=== PATIENT | female | born 1950 | race Caucasian/White ===

== ENCOUNTER 2020-07-05 08:54 | Outpatient (CLI) | payer MEDICARE, SELFPAY ==
--- NOTE | 2020-07-05 | US_ITS ---
WS: [id number] ULTRASOUND RENAL TECHNIQUE: Ultrasound examination of both kidneys. CLINICAL INFORMATION: ACUTE RENAL FAILURE COMPARISON: None. FINDINGS: RIGHT: Mild renal cortical atrophy with prominent peripelvic cysts with pelvocaliectasis Echogenicity: Normal. Hydronephrosis: None. Perinephric fluid: None. Right kidney measures: 9.9 cm x 4.7 cm x 4.3 cm. LEFT: Mild renal cortical atrophy with prominent peripelvic cysts with pelvocaliectasis. Echogenicity: Normal. Hydronephrosis: None. Perinephric fluid: None. Left kidney measures: 9.9 cm x 5.2 cm x 4.4 cm. Normal visualized aorta. Bladder not well distended US/US renal BI* [id number] IMPRESSION: 1. Bilateral peripelvic renal cysts with pelvocaliectasis similar to the prior CT 6 018. 2. No significant hydronephrosis. 3. Bladder is decompressed.
--- NOTE | 2020-07-05 | US_ITS ---
WS: [id number] ULTRASOUND ABDOMEN LIMITED CLINICAL INFORMATION: LFT ELEVATION COMPARISON: None. FINDINGS: Liver Size: Normal. Craniocaudal length: 13.1 cm. Echogenicity: Normal. Surface nodularity: None. Mass (size and location): None. Bile ducts Intrahepatic ducts: Normal. Common bile duct diameter: 6.8 cm. Gallbladder Removed Pancreas Normal as visualized. Right kidney: Dilated renal pelvis Hydronephrosis: None. Size: 9.9 cm x 5.1 cm x 4.4 cm. Abdominal aorta and IVC Visualized portions are normal. Ascites: None. US/US liver [id number] IMPRESSION: 1. Liver is normal. 2. Gallbladder has been removed. 3. Right renal peripelvic cysts and pelvocaliectasis. No significant hydroneph rosis.
== END 2020-07-05 08:55 | disposition home or self-care (01) ==
PROVIDERS: Family Provider Family Medicine; PCP Family Medicine; Visit Provider Family Medicine
DX: N17.9 Acute kidney failure, unspecified (principal); R79.89 Other specified abnormal findings of blood chemistry; N28.1 Cyst of kidney, acquired
CPT/HCPCS: 76705

== ENCOUNTER 2020-09-20 14:59 | Outpatient (CLI) | payer MEDICARE, SELFPAY ==
--- NOTE | 2020-09-20 15:08 | MM_ITS ---
WS: [id number] BILATERAL DIGITAL SCREENING MAMMOGRAPHY WITH CAD CLINICAL INFORMATION: SCREENING HISTORY: Screening mammogram. No current complaints. COMPARISON: TECHNIQUE: Bilateral CC and MLO views. FINDINGS: Scattered fibroglandular densities bilaterally. No suspicious focal mass, asymmetry, calcifications, or architectural distortion. No evidence of malignancy. Punctate and lucent centered calcifications. Stable ovoid nodules right breast. MM/[place] [id number] IMPRESSION: BI-RADS: 2-Benign FOLLOW UP: 1 Year Follow-up Recommend return to annual screening mammography.
== END 2020-09-20 15:00 | disposition home or self-care (01) ==
LOC: RADSHAW 15:06
PROVIDERS: PCP Family Medicine; Visit Provider Nurse Practitioner
DX: Z12.31 Encounter for screening mammogram for malignant neoplasm of breast (principal)
CPT/HCPCS: 77067

== ENCOUNTER 2021-07-31 15:11 | Outpatient (CLI) | payer MEDICARE, SELFPAY ==
--- NOTE | 2021-07-31 15:23 | XR_ITS ---
WS: [id number] SCREENING DEXA SCAN [employer] CLINICAL INFORMATION: POSTMENOPAUSAL COMPARISON: FINDINGS: The L1-L4 bone mineral density measures 0.981 g/cm2. This corresponds to a T score score of -1.7 and Z score of -0.3. Left femoral neck bone mineral density measures 0.798 g/cm2. This corresponds to a T score of -1.7 an d Z score of -0.5. Right femoral neck bone mineral density measures 0.801 g/cm2. This corresponds to a T score -1.6of an d Z score of -0.5. Mean femoral neck bone mineral density measures 0.800 g/cm2. This corresponds to a T score of -1.7 an d Z score of -0.5. XR/XR DEXA axial skeleton* [id number] IMPRESSION: Osteopenia Patient's FRAX calculated 10 year probability for major osteoporotic fracture i s 13.5 % and osteoporotic hip fracture is 3.0%.
== END 2021-07-31 15:12 | disposition home or self-care (01) ==
PROVIDERS: PCP Family Medicine; Visit Provider Family Medicine
DX: Z78.0 Asymptomatic menopausal state (principal); M85.80 Other specified disorders of bone density and structure, unspecified site
CPT/HCPCS: 77080

== ENCOUNTER 2022-02-14 10:39 | Outpatient (CLI) | payer MEDICARE, SELFPAY ==
--- NOTE | 2022-02-14 10:50 | MM_ITS ---
WS: [id number] VIEWS: MLO and CC views both breasts. 3D digital tomosynthesis is also included in this exam. Comparison made with prior exam of 07/13/2015, 08/08/2016, 08/11/2017, 01/01/2019, 09/20/2020.. Findings: There was no sign of mass, architectural distortion or suspicious calcification in either breast. Sta ble appearing nodular densities in both breasts.Scattered fibroglandular densities MM/[place] [id number] Impression: BI-RADS: 2-Benign FOLLOW-UP: 1 Year Follow-up This mammogram was also analyzed by the Computer Aided Detection System [employer] Faculty Member.
== END 2022-02-14 10:40 | disposition home or self-care (01) ==
LOC: RAD 10:47
PROVIDERS: PCP Family Medicine; Visit Provider Family Medicine
DX: Z12.31 Encounter for screening mammogram for malignant neoplasm of breast (principal)
CPT/HCPCS: 77063; 77067

== ENCOUNTER 2022-12-03 09:51 | Emergency (ER) | payer MEDICARE, SELFPAY ==
[2022-12-03 10:01] VITALS: BP 118/76; PULSE 54; RESP 16; TEMP 35.9; O2SAT 100; BMI 24.4
[2022-12-03 10:20] VITALS: BP 124/67; PULSE 51; RESP 18; O2SAT 100
[2022-12-03] MEDS: ondansetron 2 mg/ML SDV 2 mL 4 MG IVP (10:21)
[2022-12-03] MEDS: sodium chloride 0.9% 1,000 ML 999 ML IV (10:22)
[2022-12-03 10:28] LABS: Basophils # 0.1 10^3/uL (0.0-0.1); Basophils % 1.2 %; Eosinophils # 0.1 10^3/uL (0.0-0.8); Eosinophils % 2.4 %; Hematocrit 38.6 % (37.0-47.0); Hemoglobin 12.5 g/dL (11.5-15.3); Lymphocytes # 1.4 10^3/uL (0.8-4.8); Mean Corpuscular HGB Conc 32.4 g/dL (30.0-36.0); Mean Corpuscular Volume 86.5 fl (81-99); Mean Platelet Volume 10.3 fL (7.4-10.4); Monocytes # 0.4 10^3/uL (0.2-0.9); Monocytes % 6.9 %; Neutrophils # 3.74 10^3/uL (1.8-7.7); Nucleated Red Blood Cells % 0 %; Platelet Count 192 10^3/cmm (130-400); Red Blood Count 4.46 10^6/uL (4.1-5.3); Red Cell Distribution Width 13.1 % (12.1-15.1); White Blood Count 5.8 10^3/uL (4.0-10.0)
--- NOTE | 2022-12-03 10:43 | W.ED.ABDPA2 ---
HPI - Abdominal Pain General: Chief Complaint: Abdominal Pain Stated Complaint: Abd pains Time Seen by Provider: 12/03/22 10:03 Source: patient Mode of arrival: ambulatory History of Present Illness: 71-year-old female presents emergency room complaining of abdominal pain and dizziness. She has recent completed course of antibiotics for urinary tract infection she denies any dysuria urgency or frequency. No hematuria. No vomiting or diarrhea. She does feel like she is having a lot of heartburn she previously had a Ramiro fundoplication. She denies any hematemesis or coffee-ground emesis. MD elicited complaint: abdominal pain Onset (ago): hour(s) Pain Consistency: constant Location: Epigastric Severity: moderate Quality: cramping Radiation: none Exacerbating factors: nothing Relieving factors: nothing Associated Symptoms: Reports bloating, GI cramping and poor appetite; Denies anorexia, belching, change in bowel habits, change in stool character, chills, coffee ground emesis, constipation, diarrhea, dyspepsia, dysuria, excessive flatus, fever(s), heartburn, hematochezia, hematuria, hematemesis, fecal incontinence, loose stools, melena, nausea, syncope and vomiting Review of Systems Const: Reports: fatigue and malaise; Denies: fever(s) or chills ENMT: Denies: throat pain, ear or mastoid pain, nasal discharge or nasal congestion Card: Denies: chest pain, palpitations, irregular heart rhythm or syncope Resp: Denies: dyspnea, productive cough or non-productive cough GI: Reports: abdominal pain, bloating and GI cramping; Denies: nausea, vomiting, hematemesis, coffee ground emesis, heartburn, diarrhea, constipation, belching, excessive flatus, fecal incontinence, change in bowel habits, change in stool character, hematochezia or melena : Denies: dysuria or hematuria Skin/Breast: Denies: rash or pruritus PFSH ED PFSH: Medical History GERD (gastroesophageal reflux disease) Surgical History History of Ramiro fundoplication Physical Exam Const: GENERAL APPEARANCE: cooperative and comfortable ORIENTATION/CONSCIOUSNESS: Yes awake, Yes oriented to person, Yes oriented to place and Yes oriented to time HENMT: COMMON NORMALS: normocephalic, atraumatic and hearing grossly normal bilaterally HEAD & SCALP: normocephalic and atraumatic Resp: COMMON NORMALS: normal respiratory effort, No retractions, No use of accessory muscles and clear to auscultation bilaterally AUSCULTATION: clear to auscultation bilaterally Cardio: COMMON NORMALS: regular rate, regular rhythm and No murmurs present (Cardio) RATE: regular rate RHYTHM: regular rhythm GI: COMMON NORMALS: Soft to palpation and No hepatosplenomegaly present AUSCULTATION: Yes normoactive bowel sounds PALPATION: Yes Soft to palpation, No Tenderness to palpation present (GI), No Guarding due to palpation present (GI) and Yes No hepatosplenomegaly present Extremity: COMMON NORMALS: normal to inspection, capillary refill normal, no clubbing, cyanosis or edema, no calf tenderness and no pedal edema Neuro: SENSORIUM/ORIENTATION: Yes oriented to person, Yes oriented to place and Yes oriented to time Skin: COMMON NORMALS: no rashes or lesions noted GENERAL SKIN EXAM: no rashes or lesions noted Course Vital Signs: Vital signs: Vital Signs Temperature 96.7 F L 12/03/22 10:01 Pulse Rate 54 L 12/03/22 11:20 Respiratory Rate 18 12/03/22 10:20 Blood Pressure 117/66 12/03/22 11:20 Pulse Oximetry 96 12/03/22 12:15 Oxygen Delivery Me thod 12/03/22 12:15 MDM - Abdominal Pain Medical Decision Making Patient significant improvement after GI cocktail. Discharge patient home started on pantoprazole 40 mg twice daily for 14 days and then daily. Follow-up with primary care doc within the week. Return if has further problems. Medical Records I reviewed the patient's medical records. Lab Data I reviewed the patient's lab results. 12/03/22 10:20 12/03/22 10:20 Labs/Radiology: Laboratory Results WBC 5.8 10^3/uL (4.0-10.0) 12/03/22 10:20 RBC 4.46 10^6/uL (4.1-5.3) 12/03/22 10:20 Hgb 12.5 g/dL (11.5-15.3) 12/03/22 10:20 Hct 38.6 % (37.0-47.0) 12/03/22 10:20 MCV 86.5 fl (81-99) 12/03/22 10:20 MCH 28.0 pg (28.0-34.0) 12/03/22 10:20 MCHC 32.4 g/dL (30.0-36.0) 12/03/22 10:20 RDW 13.1 % (12.1-15.1) 12/03/22 10:20 Plt Count 192 10^3/cmm (130-400) 12/03/22 10:20 MPV 10.3 fL (7.4-10.4) 12/03/22 10:20 Neut % (Auto) 65.0 % 12/03/22 10:20 Lymph % (Auto) 24.0 % 12/03/22 10:20 [place] % (Auto) 6.9 % 12/03/22 10:20 Eos % (Auto) 2.4 % 12/03/22 10:20 Baso % (Auto) 1.2 % 12/03/22 10:20 Neut # (Auto) 3.74 10^3/uL (1.8-7.7) 12/03/22 10:20 Lymph # (Auto) 1.4 10^3/uL (0.8-4.8) 12/03/22 10:20 [place] # (Auto) 0.4 10^3/uL (0.2-0.9) 12/03/22 10:20 Eos # (Auto) 0.1 10^3/uL (0.0-0.8) 12/03/22 10:20 Baso # (Auto) 0.1 10^3/uL (0.0-0.1) 12/03/22 10:20 Nucleated RBC % (auto) 0 % 12/03/22 10:20 Nucleated RBCs # 0.0 /100WBC 12/03/22 10:20 Sodium 139 mmol/L (136-145) 12/03/22 10:20 Potassium 3.0 mmol/L (3.5-5.1) L 12/03/22 10:20 Chloride 99 mmol/L (98-107) 12/03/22 10:20 Carbon Dioxide 29 mmol/L (22-29) 12/03/22 10:20 Anion Gap 14.0 (5-19) 12/03/22 10:20 BUN 26 mg/dL (8-23) H 12/03/22 10:20 Creatinine 1.6 mg/dL (0.5-0.9) H 12/03/22 10:20 GFR Calculation 32.0 mL/min (90-130) L 12/03/22 10:20 Glucose 93 mg/dL (65-115) 12/03/22 10:20 Calculated Osmolality 292 mOsm/kg (285-295) 12/03/22 10:20 Calcium 10.7 mg/dL (8.5-10.5) H 12/03/22 10:20 Total Bilirubin 0.3 mg/dL (0.15-1.2) 12/03/22 10:20 AST 20 U/L (0-32) 12/03/22 10:20 ALT 13 U/L (0-33) 12/03/22 10:20 Alkaline Phosphatase 56 U/L (35-105) 12/03/22 10:20 Creatine Kinase 85 U/L (26-192) 12/03/22 10:20 Total Protein 6.8 g/dL (6.6-8.7) 12/03/22 10:20 Albumin 3.7 g/dL (3.5-5.2) 12/03/22 10:20 Globulin 3.1 g/dL (1.3-4.6) 12/03/22 10:20 Urine Color Yellow (Yellow) 12/03/22 12:57 Urine Appearance Clear (CLEAR) 12/03/22 12:57 Urine pH 7 (5-7) 12/03/22 12:57 Ur Specific [place] 1.010 (1.005-1.030) 12/03/22 12:57 Urine Protein Neg (Negative) 12/03/22 12:57 Urine Glucose (UA) Norm (Normal) 12/03/22 12:57 Urine Ketones Negative (Negative) 12/03/22 12:57 Urine Blood Neg (Negative) 12/03/22 12:57 Urine Nitrate Negative (Negative) 12/03/22 12:57 Urine Bilirubin Neg (Negative) 12/03/22 12:57 Urine Urobilinogen Norm mg/dL (Negative) 03/28/23 12:57 Ur Leukocyte Esterase Negative (Negative) 12/03/22 12:57 Discharge Plan Discharge Patient Disposition: Home Clinical Impression: GERD (gastroesophageal reflux disease) Condition: Stable Prescriptions: New Protonix 40 mg tablet,delayed release (DR/EC) 40 mg PO BID 14 Days Qty: 28 0RF potassium chloride 20 mEq tablet extended release 20 meq PO DAILY Qty: 5 0RF No Action carisoprodol 350 mg tablet 350 mg PO Q6H PRN (Reason: Muscle Spasm) metoprolol succinate 50 mg tablet extended release 24 hr 50 mg PO QAM ondansetron HCl 4 mg tablet 4 mg PO Q6H PRN (Reason: Nausea And Vomiting) ciprofloxacin HCl 500 mg tablet 500 mg PO Q12H Rx Instructions: for 7 days (rx filled 11/25/22) tramadol 50 mg tablet 100 mg PO BID levothyroxine 75 mcg tablet 75 mcg PO BEDTIME amlodipine 10 mg tablet 10 mg PO QAM lisinopril-hydrochlorothiazide 10-12.5 mg tablet 1 tab PO QAM duloxetine 20 mg capsule,delayed release(DR/EC) 20 mg PO QAM Discharge Orders: Discharge ED (Routine); Ordered 12/03/22 Ordered By: Santosh Barragan Referrals: Kumar Nj MD [Primary Care Provider] - Discharge Diet: As Directed Discharge Activity: Resume usual activity Patient Instructions: Opioid Safety, Pain Management Activity Restrictions/Additional Instructions: You are seen today for dizziness and abdominal discomfort. Abdominal discomfort improved with medications for your stomach. Recommend that you start pantoprazole 40 mg twice daily for the next 2 weeks then once daily after that. Your potassium was slightly low but not significant will discharge home with oral potassium supplement for the next 3 days. Your creatinine is also very slightly elevated the creatinine and potassium should be checked by your primary care doctor within the next week. Coding Level of Care Code ED [employer] for Jodie Apodaca
[2022-12-03 10:46] LABS: Alanine Aminotransferase 13 U/L (0-33); Albumin Level 3.7 g/dL (3.5-5.2); Alkaline Phosphatase 56 U/L (35-105); Aspartate Amino Transferase 20 U/L (0-32); Blood Urea Nitrogen 26 mg/dL (8-23); Calcium 10.7 mg/dL (8.5-10.5); Carbon Dioxide 29 mmol/L (22-29); Chloride 99 mmol/L (98-107); Creatine Phosphokinase 85 U/L (26-192); Globulin 3.1 g/dL (1.3-4.6); Glucose 93 mg/dL (65-115); Osmolality Calculated 292 mOsm/kg (285-295); Sodium 139 mmol/L (136-145); Total Bilirubin 0.3 mg/dL (0.15-1.2); Total Protein 6.8 g/dL (6.6-8.7)
[2022-12-03] MEDS: lidocaine 2% viscous 15 ML, aluminum-mag hydrox-simethicon 30 ML, sucralfate oral liq 1 GM PO (11:18)
[2022-12-03 11:20] VITALS: BP 117/66; PULSE 54; O2SAT 95
[2022-12-03 12:15] VITALS: O2SAT 96
[2022-12-03 13:11] LABS: Add Urine Microscopic? NO; Charge for UA Resulting for Rev
[2022-12-03 13:31] LABS: Bilirubin Urine Neg (Negative); Blood Urine Neg (Negative); Glucose Urine UA Norm (Normal); Ketones Urine Negative (Negative); Leukocyte Esterase Urine Negative (Negative); Nitrate Urine Negative (Negative); Protein Urine Neg (Negative); Urine Appearance Clear (CLEAR); Urine Color Yellow (Yellow); Urobilinogen Urine Norm (Negative); pH Urine 7 (5-7)
== END 2022-12-03 13:23 | disposition home or self-care (01) ==
PROVIDERS: Emergency Provider Family Medicine; PCP Family Medicine
DX: K21.9 Gastro-esophageal reflux disease without esophagitis (principal)
CPT/HCPCS: 36415; 80053; 81003; 82550; 85025; 96361; 96374; 99284; J2405; J7030

== ENCOUNTER 2023-02-11 08:57 | Outpatient (CLI) | payer MEDICARE, SELFPAY ==
--- NOTE | 2023-02-11 09:20 | US_ITS ---
WS: [id number] ULTRASOUND ABDOMEN LIMITED CLINICAL INFORMATION: LIVER TRANSAMINASE LEVEL ELEVATED COMPARISON: Ultrasound 2020 FINDINGS: Liver Size: Normal. Craniocaudal length: 13.7 cm. Echogenicity: Coarse Surface nodularity: None. Mass (size and location): None. Bile ducts Intrahepatic ducts: Normal. Common bile duct diameter: 0.6 cm. Gallbladder Cholecystectomy Pancreas Normal as visualized. Right kidney: Normal. Hydronephrosis: None. Size: 8.2 cm x 4.4 cm x 5.0 cm. Abdominal aorta and IVC Visualized portions are normal. Ascites: None. US/US liver [id number] IMPRESSION: 1. Prior cholecystectomy. 2. Coarse hepatic echogenicity likely due to fatty infiltration. Recommend cor relation with liver function tests. 3. No hydronephrosis in RIGHT kidney.
== END 2023-02-11 08:58 | disposition home or self-care (01) ==
PROVIDERS: PCP Family Medicine; Visit Provider Family Medicine
DX: R74.01 Elevation of levels of liver transaminase levels (principal); Z90.49 Acquired absence of other specified parts of digestive tract
CPT/HCPCS: 76705

== ENCOUNTER 2023-02-25 09:23 | Outpatient (CLI) | payer MEDICARE, SELFPAY ==
--- NOTE | 2023-02-25 09:29 | MM_ITS ---
WS: [id number] BILATERAL 3D TOMOSYNTHESIS DIGITAL SCREENING MAMMOGRAPHY WITH CAD CLINICAL INFORMATION: SCREEN HISTORY: Screening mammogram. No current complaints. COMPARISON: February 14, 2022 TECHNIQUE: Bilateral CC and MLO views. FINDINGS: Scattered fibroglandular densities bilaterally. No suspicious focal mass, asymmetry, calcifications, or architectural distortion. No evidence of malignancy. Punctate and lucent centered calcifications. Vascular calcification. MM/[place] [id number] IMPRESSION: BI-RADS: 2-Benign FOLLOW UP: 1 Year Follow-up Recommend return to annual screening mammography.
== END 2023-02-25 09:24 | disposition home or self-care (01) ==
PROVIDERS: PCP Family Medicine; Visit Provider Family Medicine
DX: Z12.31 Encounter for screening mammogram for malignant neoplasm of breast (principal)
CPT/HCPCS: 77063; 77067

== ENCOUNTER 2024-05-05 10:56 | Outpatient (CLI) | payer MEDICARE, SELFPAY ==
--- NOTE | 2024-05-05 11:06 | MM_ITS ---
WS: [id number] BILATERAL SCREENING DIGITAL TOMOSYNTHESIS MAMMOGRAM WITH CAD HISTORY: SCREENING COMPARISON: 02/25/2023, 02/14/2022 and 09/20/2020 Bilateral CC and MLO views with tomosynthesis and synthetic mammography submitted. Computer aided det ection analyzed. Breast composition: There are scattered areas of fibroglandular density. No suspicious masses, microc alcifications or architectural distortion. Numerous benign calcifications within each breast. There a re additional nodules and asymmetries within each breast, greatest throughout the RIGHT breast. These asymmetries are stable. MM/[place] [id number] IMPRESSION: BI-RADS: 2-Benign FOLLOW UP: 1 Year Follow-up
== END 2024-05-05 10:57 | disposition home or self-care (01) ==
LOC: RAD 10:57
PROVIDERS: PCP Family Medicine; Visit Provider Family Medicine
DX: Z12.31 Encounter for screening mammogram for malignant neoplasm of breast (principal); R92.323 Mammographic fibroglandular density, bilateral breasts; N64.89 Other specified disorders of breast; R92.1 Mammographic calcification found on diagnostic imaging of breast
CPT/HCPCS: 77063; 77067

== ENCOUNTER 2024-06-01 10:25 | Emergency (ER) | payer MEDICARE, SELFPAY ==
[2024-06-01 10:28] VITALS: BP 123/73; PULSE 59; RESP 17; TEMP 36.9; O2SAT 98; BMI 26.2
--- NOTE | 2024-06-01 10:57 | XRR_ITS ---
PROCEDURE INFORMATION: Exam: XR Chest Exam date and time: 06/01/2024 11:06 AM Age: 73 years old Clinical indication: Injury or trauma; Fall; Blunt trauma (contusions or hematomas) TECHNIQUE: Imaging protocol: Radiologic exam of the chest. Views: 1 view. COMPARISON: CT chest abdpel w/*[id number] 03/02/2018 1:25 PM FINDINGS: Lungs: Unremarkable. No consolidation. Pleural spaces: Unremarkable. No pleural effusion. No pneumothorax. Heart/Mediastinum: Heart size is normal. There is calcified plaque involving the aorta. Bones/joints: Unremarkable. XR/XR chest 1V portable [id number] IMPRESSION: 1. No acute cardiopulmonary findings.
--- NOTE | 2024-06-01 10:57 | XRR_ITS ---
PROCEDURE INFORMATION: Exam: XR Thoracic Spine Exam date and time: 06/01/2024 11:06 AM Age: 73 years old Clinical indication: Injury or trauma; Fall; Blunt trauma (contusions or hematomas) TECHNIQUE: Imaging protocol: Radiologic exam of the thoracic spine. Views: 3 views. COMPARISON: CR XR chest 1V portable [id number] 06/01/2024 11:06 AM FINDINGS: Bones/joints: There are 12 rib-bearing thoracic vertebral bodies. There is a slight S shaped scoliotic curvature. No subluxations are identified. No definite fractures are noted. There is mild disc space narrowing with small osteophytes at multiple midthoracic levels. The pedicles appear to be intact. Soft tissues: Unremarkable. XR/XR thoracic spine 3V* [id number] IMPRESSION: 1. Slight scoliotic curvature. 2. Spondylosis.
--- NOTE | 2024-06-01 10:57 | XRR_ITS ---
PROCEDURE INFORMATION: Exam: XR Lumbosacral Spine Exam date and time: 06/01/2024 11:06 AM Age: 73 years old Clinical indication: Injury or trauma; Fall; Blunt trauma (contusions or hematomas) TECHNIQUE: Imaging protocol: Radiologic exam of the lumbosacral spine. Views: 2 or 3 views. COMPARISON: CT chest abdpel w/*[id number] 03/02/2018 1:25 PM FINDINGS: Bones/joints: There are 5 [id number] lumbar vertebral bodies. There is a slight scoliotic curvature convex right. There is grade 1 anterolisthesis of L4 in relation to L5 secondary to degenerative facets. No compression fractures are noted. There is disc space narrowing most pronounced at L5-S1. There are degenerative changes involving the lower lumbar facets. SI joints are normal. Soft tissues: See Intraperitoneal space finding. Intraperitoneal space: There are numerous surgical clips within the abdomen and pelvis. No acute soft tissue abnormalities are otherwise appreciated. XR/XR lumbar spine 2-3V* [id number] IMPRESSION: 1. Slight scoliotic curvature convex right. 2. Spondylosis with spondylolisthesis.
--- NOTE | 2024-06-01 13:59 | ED_ITS ---
HPI - Fall General: Chief Complaint: Back Pain/Injury Stated Complaint: SOB Fell hurt back/chest Time Seen by Provider: 06/01/24 13:53 Source: patient and family Mode of arrival: ambulatory Limitations: no limitations History of Present Illness: Patient is a 73-year-old female presents to ED today along with family for evaluation following a fall. Patient states she was walking down a wooden ramp earlier today at her house when she accidentally slipped because it was wet and muddy. She states she landed directly onto her tailbone . Upon arrival to the emergency department she had complained of back pain chest pain and had x-rays of her chest, thoracic, lumbar spine performed. Her main concern at time of my examination is tailbone pain. She has been ambulatory without difficulty or assistance since the fall. She states her pain actually feels better with movement/ambulation and worse when she is sitting on her buttocks/tailbone. MD complaint: fall Onset (ago): hour(s) Fall from: standing Fall witnessed: yes, by family Place fall occurred: home Loss of consciousness: None Prolonged down time: no Symptoms prior to fall: none Context: tripped/slipped Location of injury: back and buttocks Associated symptoms-after fall: Reports no associated symptoms; Denies abdominal pain, chest pain, difficulty walking, headache(s), hematuria, lightheadedness or neck pain Related Data Home Medications Medication Instructions Recorded Confirmed amlodipine 10 mg tablet 10 mg PO QAM 12/03/22 12/03/22 carisoprodol 350 mg tablet 350 mg PO Q6H PRN Muscle Spasm 12/03/22 12/03/22 ciprofloxacin HCl 500 mg tablet 500 mg PO Q12H 12/03/22 12/03/22 duloxetine 20 mg capsule,delayed 20 mg PO QAM 12/03/22 12/03/22 release levothyroxine 75 mcg tablet 75 mcg PO BEDTIME 12/03/22 12/03/22 lisinopril 10 1 tab PO QAM 12/03/22 12/03/22 mg-hydrochlorothiazide 12.5 mg tablet metoprolol succinate 50 mg 50 mg PO QA 12/03/22 12/03/22 tablet,extended release 24 hr ondansetron HCl 4 mg tablet 4 mg PO Q6H PRN Nausea And Vomiting 12/03/22 12/03/22 tramadol 50 mg tablet 100 mg PO BID 12/03/22 12/03/22 Previous Rx's Medication Instructions Recorded potassium chloride 20 mEq 20 meq PO DAILY #5 tabs 12/03/22 tablet,extended release hydrocodone 5 mg-acetaminophen 325 1 tab PO Q6H PRN pain #14 tabs 06/01/24 mg tablet Allergies Allergy/AdvReac Type Severity Reaction Status Date / Time No Known Allergies Allergy Verified 12/03/22 10:24 Review of Systems Eyes: Denies: change in vision, blurry vision, photophobia, eye discharge, floaters or seeing flashes ENMT: Denies: throat pain, odynophagia, ear or mastoid pain, ear discharge, nasal discharge, epistaxis or sinus pain Card: Denies: chest pain, palpitations, lightheadedness, syncope or pre- syncope Resp: Denies: dyspnea or pain on inspiration GI: Denies: abdominal pain : Denies: flank pain or hematuria Musc: Reports: back pain; Denies: neck pain, extremity pain, extremity swelling, joint pain, joint swelling, joint redness or joint warmth Neuro: Denies: headache(s), numbness in extremities, weakness in extremities, sensory changes, difficulty walking or dizziness PFSH ED PFSH: Medical History GERD (gastroesophageal reflux disease) Surgical History History of Ramiro fundoplication Physical Exam Const: COMMON NORMALS: no acute distress, average body habitus, patient oriented x3, no limitations, healthy appearing, alert and well nourished GENERAL APPEARANCE: cooperative ORIENTATION/CONSCIOUSNESS: Yes awake, Yes oriented to person, Yes oriented to place and Yes oriented to time HENMT: COMMON NORMALS: normocephalic, atraumatic and TM's normal bilaterally HEAD & SCALP: normal to inspection, normocephalic and atraumatic; no Hopper's sign, no hematoma and no raccoon eyes FACE & SINUS: normal facial exam TYMPANIC MEMBRANE: TM's normal bilaterally MOUTH: other (no intraoral injuries noted) Eye: COMMON NORMALS: Equal, round and reactive pupils present and EOMs intact bilaterally GENERAL EYE: appearance normal, both eyes and all related structures and normal light reflex PUPIL: Yes Equal, round and reactive pupils present DIRECT OPHTHALMOSCOPY: Yes normal light reflex Neck/C-Spine: COMMON NORMALS: full ROM GENERAL: Yes normal visual inspection CERVICAL SPINE: Yes cervical ROM normal, No pain with cervical ROM, No Cervical spine tenderness, No step off deformity and No Paracervical muscle tenderness Chest: COMMONS NORMALS: normal inspection of the chest and normal palpation of entire chest wall Resp: COMMON NORMALS: normal respiratory effort and clear to auscultation bilaterally AUSCULTATION: clear to auscultation bilaterally Cardio: COMMON NORMALS: regular rate and regular rhythm RATE: regular rate RHYTHM: regular rhythm GI: COMMON NORMALS: Normal to inspection, nondistended, normoactive bowel sounds present, Soft to palpation, non-tender, No hepatosplenomegaly present and no masses INSPECTION: Yes normal to inspection and No abdominal wall ecchymosis AUSCULTATION: Yes normoactive bowel sounds PALPATION: Yes Soft to palpation and Yes No hepatosplenomegaly present Back/Pelvis: COMMON NORMALS: thoracic and lumbar spine normal to inspection and thoraco-lumbar ROM normal THORACIC SPINE/UPPER BACK: Yes thoracic spinal tenderness LUMBAR SPINE/LOWER BACK: Yes lumbar spinal tenderness PELVIS: Yes buttocks normal and No sciatic notch tenderness SACROILIAC JOINTS: Yes SI joints normal SACRUM: tenderness COCCYX: Coccyx tenderness present Extremity: COMMON NORMALS: normal to inspection and full ROM GENERAL: Yes normal exam except as noted Neuro: AYLA COMA SCALE: document GCS findings Crawford coma scale eye opening: Spontaneous Ayla coma scale verbal response: Orientated Crawford coma scale motor response: Obey commands Ayla coma scale total score: 15 COMMON NORMALS: patient oriented x3, CN's II-XII intact bilaterally, moves all extremities, no focal motor deficits, no sensory deficits noted and gait normal SENSORIUM/ORIENTATION: Yes alert, Yes oriented to person, Yes oriented to place and Yes oriented to time SPEECH: speech normal GAIT: Yes Normal gait present Skin: COMMON NORMALS: no rashes or lesions noted GENERAL SKIN EXAM: no rashes or lesions noted TRAUMA: no lacerations or abrasions Course Vital Signs: Vital signs: Vital Signs Temperature 98.5 F 06/01/24 10:28 Pulse Rate 59 L 06/01/24 10:28 Respiratory Rate 17 06/01/24 10:28 Blood Pressure 123/73 06/01/24 10:28 Pulse Oximetry 98 09/24/24 10:28 Oxygen Delivery Me thod Room Air 06/01/24 10:28 MDM - Fall Medical Decision Making XRs of her chest, thoracic spine, lumbar spine ordered from the waiting room and are unremarkable. Personal interpretation does show some deformity to her coccyx on her XR lumbar. Spoke to Dr. Brooks who agrees. Stated it was difficult to tell whether this was acute or chronic. Old CT imaging reviewed which does show this may be chronic. His recommendation was for CT bony pelvis imaging to evaluate for acute sacral/coccygeal injury. Patient states she does not want to stay for this and would like to go home. She is requesting pain medications be sent to her pharmacy. She states she will follow-up with her PCP Dr. Nj for continued pain and can get this ordered as an outpatient if necessary. Medical Records I reviewed the patient's medical records. Lab Data Radiology Impressions Chest X-Ray 06/01/24 10:57 IMPRESSION: 1. No acute cardiopulmonary findings. Lumbar Spine X-Ray 06/01/24 10:57 IMPRESSION: 1. Slight scoliotic curvature convex right. 2. Spondylosis with spondylolisthesis. Thoracic Spine X-Ray 06/01/24 10:57 IMPRESSION: 1. Slight scoliotic curvature. 2. Spondylosis. All radiology interpretation(s) finalized by discharge Discharge Plan Discharge Patient Disposition: Home Clinical Impression: Fall from slipping on mud, Acute coccygeal pain Condition: Stable Prescriptions: New hydrocodone-acetaminophen 5-325 mg tablet 1 tab PO Q6H PRN (Reason: pain) Qty: 14 0RF Held tramadol 50 mg tablet 100 mg PO BID Hold Instructions: do not take along with the hydrocodone you were prescribed No Action carisoprodol 350 mg tablet 350 mg PO Q6H PRN (Reason: Muscle Spasm) metoprolol succinate 50 mg tablet extended release 24 hr 50 mg PO QAM ondansetron HCl 4 mg tablet 4 mg PO Q6H PRN (Reason: Nausea And Vomiting) ciprofloxacin HCl 500 mg tablet 500 mg PO Q12H Rx Instructions: for 7 days (rx filled 11/25/22) levothyroxine 75 mcg tablet 75 mcg PO BEDTIME amlodipine 10 mg tablet 10 mg PO QAM lisinopril-hydrochlorothiazide 10-12.5 mg tablet 1 tab PO QAM duloxetine 20 mg capsule,delayed release(DR/EC) 20 mg PO QAM potassium chloride 20 mEq tablet extended release 20 meq PO DAILY Qty: 5 0RF Discharge Orders: Discharge ED (Routine); Ordered 06/01/24 Ordered By: Sophie Dao Referrals: Kumar Nj MD [Primary Care Provider] - Patient Instructions: Coccyx Injury, Coccyx Injury (ED), Opioid Safety, Pain Management Activity Restrictions/Additional Instructions: As we discussed, you need to sit on a doughnut cushion to help with your coccyx discomfort. As we discussed, you have declined additional imaging for diagnosis of a sacral or coccyx fracture. You have indicated you have follow-up with your primary care provider for this. Recommend he return to the emergency department for worsening or uncontrollable pain, trouble walking, dizziness, lightheadedness, passing out, significant bruising to your abdomen or back, or any other concerns you may have. Coding Level of Care Code ED [employer] for Jodie Apodaca
[2024-06-01 14:17] VITALS: BP 133/82; PULSE 63; RESP 18; O2SAT 100
[2024-06-01 14:21] VITALS: RESP 18
[2024-06-01] MEDS: ondansetron 2 mg/ML SDV 2 mL 4 MG IM (14:21)
[2024-06-01] MEDS: morphine 4 mg/mL SDV 1 mL IM (14:21)
[2024-06-01 14:48] VITALS: BP 104/75; PULSE 61; RESP 16; O2SAT 98
== END 2024-06-01 14:50 | disposition home or self-care (01) ==
PROVIDERS: Emergency Provider Physician Assistant; PCP Family Medicine
DX: M53.3 Sacrococcygeal disorders, not elsewhere classified (principal); W01.0XXA Fall on same level from slipping, tripping and stumbling without subsequent striking against object, initial encounter
CPT/HCPCS: 71045; 72072; 72100; 96372; 99284; J2270; J2405

== ENCOUNTER 2025-01-07 13:43 | Outpatient (CLI) | payer MEDICARE, SELFPAY ==
--- NOTE | 2025-01-07 13:47 | XR_ITS ---
WS: [id number] SCREENING DEXA SCAN Reveal CLINICAL INFORMATION: POSTMENOPAUSAL COMPARISON: 2020 FINDINGS: The L1-L4 bone mineral density measures 0.982 g/cm2. This corresponds to a T score score of -1.7 and Z score of -0.2. Left femoral neck bone mineral density measures 0.704 g/cm2. This corresponds to a T score of -2.4 and Z score of -1.0. Right femoral neck bone mineral density measures 0.713 g/cm2. This corresponds to a T score -2.3of and Z score of -1.0. Mean femoral neck bone mineral density measures 0.708 g/cm2. This corresponds to a T score of -2.4 and Z score of -1.0. XR/XR DEXA axial skeleton* [id number] IMPRESSION: Osteopenia lumbar spine. Osteopenia femoral necks. Patient's FRAX calculated 10 year probability for major osteoporotic fracture i s 27.9% and osteoporotic hip fracture is 9.2%. Bone density lumbar spine increased 0.1% Bone mineral density femoral necks decreased -11.5%
== END 2025-01-07 13:44 | disposition home or self-care (01) ==
PROVIDERS: PCP Family Medicine; Visit Provider Family Medicine
DX: Z78.0 Asymptomatic menopausal state (principal); M85.89 Other specified disorders of bone density and structure, multiple sites
CPT/HCPCS: 77080

== ENCOUNTER 2025-05-31 10:09 | Outpatient (CLI) | payer MEDICARE, SELFPAY ==
--- NOTE | 2025-05-31 10:17 | MM_ITS ---
WS: [id number] BILATERAL 3D TOMOSYNTHESIS DIGITAL SCREENING MAMMOGRAPHY WITH CAD CLINICAL INFORMATION: ANNUAL SCREEN HISTORY: Screening mammogram. No current complaints. COMPARISON: 2023 TECHNIQUE: Bilateral CC and MLO views. FINDINGS: Scattered fibroglandular densities bilaterally. No suspicious focal mass, asymmetry, calcifications, or architectural distortion. No evidence of malignancy. Punctate and lucent centered calcifications. Vascular calcifications. MM/MM scr tomosynthesis [id number] IMPRESSION: DENSITY: There are scattered areas of fibroglandular density. BI-RADS: 2 - Benign. FOLLOW UP: 1 Year Follow-up Recommend return to annual screening mammography.
== END 2025-05-31 10:10 | disposition home or self-care (01) ==
LOC: RAD 10:11
PROVIDERS: PCP Family Medicine; Visit Provider Family Medicine
DX: Z12.31 Encounter for screening mammogram for malignant neoplasm of breast (principal); R92.323 Mammographic fibroglandular density, bilateral breasts; R92.1 Mammographic calcification found on diagnostic imaging of breast
CPT/HCPCS: 77063; 77067